=== PATIENT | male | born 1990 | race Caucasian/White ===

== ENCOUNTER 2017-12-01 22:59 | Emergency (ER) | payer SELFPAY ==
[2017-12-01 23:00] VITALS: BP 214/84; PULSE 92; RESP 20; TEMP 36.7; O2SAT 99; BMI 43.9
--- NOTE | 2017-12-01 23:30 | ED.VISSUMM ---
- ER Visit Summary Date of Service: 12/01/17 Chief Complaint: Dental pain History of Present Illness: The patient is a 26 M who has been seen in the past for dental infection. He states he has no dentist. He taken Tylenol and ibuprofen without much benefit. He denies fever, chills night sweats. Denies history of SPE or being immune suppressed. He denies any visual change, tinnitus, decreased hearing or sore throat. He denies any anterior posterior neck pain. He does complain of palpitations and feeling short of breath. He denies any leg pain, swelling or discoloration. He denies fever, chills or night sweats. He denies weight gain or weight loss. He denies trouble with speech or swallowing. He denies any exertional chest pain or shortness of breath. He denies any change in the pain with change in position. What he is describing his pain when asked to clarify he is complaining of palpitations. He feels as if his heart is pounding out of his chest. Please see written note for complete detail Physical Examination: Initial blood pressure is elevated to 14/84. Patient states she has been told multiple times his blood pressure is elevated. He is on no antihypertensive medication. Pulse equal round reactive. Extra muscles are intact. Funduscopic exam reveals no papilledema. Question of AV nicking. TMs normal. Nares patent. Posterior pharynx without erythema or exudate. Uvula is midline. Left lower molar is eroded to the gumline with inflammation of the gum line. There is no periodontal abscess. There is no facial erythema or swelling. He has discomfort submandibular region. There is no evidence of Zbigniew's angina. Heart is regular without murmur, gallop or rub. S1 and S2 are normal. Lungs are clear to auscultation with good movement of air bilaterally. Patient is alert and oriented ?3. Motor is 5 over 5. Sensory is intact. DTRs are symmetric with no clonus or Babinski sign. Cranial 2 through 12 are intact. Cerebellar testing is normal. Test Results: [] Emergency Department Course and Treatment: Patient was treated with Pen-Vee K 500 mg p.o. and one [place] tablet for his dental pain. For his elevated blood pressure he received a dose of lisinopril. Repeat blood pressure is 183/104. Treatment Plan: [facility]erral to [facility] for blood pressure monitoring and dental infection. Prescription for Pen-Vee K and 10 [place]. He also was given a prescription for lisinopril 10 mg. Disposition: Discharged to home Impression: 1. Hypertension newly diagnosed and treated 2. Left molar decayed to the gumline with infection This note was generated with [employer] dictation software. It may contain incorrect words, spelling, and punctuation that were not noted in review of the chart prior to signing ED Disposition - Plan for ED Patient: Disposition: Home or Assisted Living Chief Complaint: Dental Instructions: Dental Abscess, ED Hypertension New Begin Tx Prescriptions: Hydrocodone Bitart/Apap 5-325 [[place] 5MG-325MG] 1 tab PO Q6H PRN PRN 3 Days #10 tab PRN Reason: Pain Lisinopril [Zestril] 10 mg PO DAILY #30 tab Penicillin V Potassium 500 mg PO 4X/DAY #40 tab Referrals: NOT,DEFINED [Primary Care Provider] - Jannet Barrett [NON-STAFF] - 3-5 Days Additional Instructions: Follow-up at the [facility] for [facility] care and blood pressure monitoring in 5-7 days.
[2017-12-01 23:31] VITALS: BP 183/104; PULSE 77; RESP 16; O2SAT 100
[2017-12-01] MEDS: HYDROcodone Bitartrate/Apap 5/325 Tablet PO (23:36)
[2017-12-01] MEDS: Penicillin Vk 250 MG Tablet 500 MG PO (23:36)
[2017-12-01] MEDS: Lisinopril 10 MG Tablet PO (23:37)
[2017-12-01 23:38] VITALS: BP 183/104; PULSE 87; RESP 16; O2SAT 97
--- NOTE | 2017-12-01 23:38 | ED.DCSUM_ITS ---
- ER Visit Summary Date of Service: 12/01/17 Chief Complaint: Dental pain History of Present Illness: The patient is a 26 M who has been seen in the past for dental infection. He states he has no dentist. He taken Tylenol and ibuprofen without much benefit. He denies fever, chills night sweats. Denies history of SPE or being immune suppressed. He denies any visual change, tinnitus, decreased hearing or sore throat. He denies any anterior posterior neck pain. He does complain of palpitations and feeling short of breath. He denies any leg pain, swelling or discoloration. He denies fever, chills or night sweats. He denies weight gain or weight loss. He denies trouble with speech or swallowing. He denies any exertional chest pain or shortness of breath. He denies any change in the pain with change in position. What he is describing his pain when asked to clarify he is complaining of palpitations. He feels as if his heart is pounding out of his chest. Please see written note for complete detail Physical Examination: Initial blood pressure is elevated to 14/84. Patient states she has been told multiple times his blood pressure is elevated. He is on no antihypertensive medication. Pulse equal round reactive. Extra muscles are intact. Funduscopic exam reveals no papilledema. Question of AV nicking. TMs normal. Nares patent. Posterior pharynx without erythema or exudate. Uvula is midline. Left lower molar is eroded to the gumline with inflammation of the gum line. There is no periodontal abscess. There is no facial erythema or swelling. He has discomfort submandibular region. There is no evidence of Zbigniew's angina. Heart is regular without murmur, gallop or rub. S1 and S2 are normal. Lungs are clear to auscultation with good movement of air bilaterally. Patient is alert and oriented ?3. Motor is 5 over 5. Sensory is intact. DTRs are symmetric with no clonus or Babinski sign. Cranial 2 through 12 are intact. Cerebellar testing is normal. Test Results: [] Emergency Department Course and Treatment: Patient was treated with Pen-Vee K 500 mg p.o. and one [place] tablet for his dental pain. For his elevated blood pressure he received a dose of lisinopril. Repeat blood pressure is 183/104. Treatment Plan: [facility]erral to [facility] for blood pressure monitoring and dental infection. Prescription for Pen-Vee K and 10 [place]. He also was given a prescription for lisinopril 10 mg. Disposition: Discharged to home Impression: 1. Hypertension newly diagnosed and treated 2. Left molar decayed to the gumline with infection This note was generated with [employer] dictation software. It may contain incorrect words, spelling, and punctuation that were not noted in review of the chart prior to signing ED Disposition - Plan for ED Patient: Disposition: Home or Assisted Living Chief Complaint: Dental Instructions: Dental Abscess, ED Hypertension New Begin Tx Prescriptions: Hydrocodone Bitart/Apap 5-325 [[place] 5MG-325MG] 1 tab PO Q6H PRN PRN 3 Days #10 tab PRN Reason: Pain Lisinopril [Zestril] 10 mg PO DAILY #30 tab Penicillin V Potassium 500 mg PO 4X/DAY #40 tab Referrals: NOT,DEFINED [Primary Care Provider] - [facility] [NON-STAFF] - 3-5 Days Additional Instructions: Follow-up at the [facility] for dental care and blood pressure monitoring in 5-7 days.
== END 2017-12-01 23:47 | disposition home or self-care (01) ==
PROVIDERS: Emergency Provider Emergency Medicine
DX: K02.9 Dental caries, unspecified (principal); K04.7 Periapical abscess without sinus; I10 Essential (primary) hypertension; E66.9 Obesity, unspecified; Z87.891 Personal history of nicotine dependence
CPT/HCPCS: 99282